=== PATIENT | female | born 1955 | race American Indian/Alaskan Native ===

== ENCOUNTER 2017-02-24 09:02 | Outpatient (CLI) | payer OTHER ==
--- NOTE | 2017-02-24 14:21 | Nuclear Medicine Report ---
NUCLEAR MEDICINE WHOLE-BODY BONE SCAN: 02/24/17 CLINICAL: History of breast cancer. COMPARISON: 06/17/16 TECHNIQUE: 25.0-millicuries technetium 99m MDP was injected intravenously and whole body scans were obtained at 3 hours. FINDINGS: Normal distribution of radionuclide in the skeleton except for benign uptake in the feet. No suspicious uptake. Normal uptake in the soft tissues. IMPRESSION: Negative study.
== END 2017-02-24 09:03 | disposition home or self-care (01) ==
LOC: NM 09:02
PROVIDERS: ATTEND Internal Medicine Hematology & Oncology
DX: M89.9 Disorder of bone, unspecified (principal); C50.911 Malignant neoplasm of unspecified site of right female breast
CPT/HCPCS: 78306; A9503

== ENCOUNTER 2017-07-10 07:51 | Outpatient (CLI) | payer OTHER ==
--- NOTE | 2017-07-10 12:56 | Nuclear Medicine Report ---
NUCLEAR MEDICINE WHOLE-BODY BONE SCAN: 07/10/17 CLINICAL: Right breast cancer. Overall joint pain. COMPARISON: 02/24/17 TECHNIQUE: 5.0millicuries technetium 99m MDP was injected intravenously and whole body scans were obtained at 3 hours. FINDINGS: A stable distribution of radionuclide in the skeleton and soft tissues with no suspicious uptake. IMPRESSION: Negative study.
== END 2017-07-10 07:52 | disposition home or self-care (01) ==
LOC: NM 07:51
PROVIDERS: ATTEND Internal Medicine Hematology & Oncology
DX: C50.911 Malignant neoplasm of unspecified site of right female breast (principal); M25.50 Pain in unspecified joint
CPT/HCPCS: 78306; A9503

== ENCOUNTER 2017-11-24 07:18 | Outpatient (CLI) | payer OTHER ==
--- NOTE | 2017-11-25 09:35 | Nuclear Medicine Report ---
NM WHOLE BODY BONE SCAN INDICATION: Malignant neoplasm of unspecified site of right breast. COMPARISON: 07/10/2017. FINDINGS: Following uneventful intravenous administration of 25 mCi of technetium 99m MDP, whole-body bone scan performed in anterior and posterior projections from the top of the head to the bottom of the feet. It reveals no definite evidence of bony metastatic disease with mild degenerative uptake at the shoulders, wrists, knees and feet. The renal shadows are normal with expected excreted radioactivity within the urinary bladder. The soft tissues appear within normal limits. CONCLUSION: No evidence of bony metastatic disease, as described. Thank you for the opportunity to participate in this patient's care.
== END 2017-11-24 07:19 | disposition home or self-care (01) ==
LOC: NM 07:18 → EDBD 08:00
PROVIDERS: ATTEND Internal Medicine Hematology & Oncology
DX: C50.911 Malignant neoplasm of unspecified site of right female breast (principal)
CPT/HCPCS: 78306; A9503

== ENCOUNTER 2021-07-30 12:20 | Outpatient (CLI) | payer MEDICARE, OTHER ==
--- NOTE | 2021-07-30 15:18 | XRay Report ---
CHEST 2 VIEWS INDICATION: COUGH/SOB/COUGHING UP BLOOD. COMPARISON: none FINDINGS: Support devices: Left Ylrgik-[id number] terminates in the superior SVC Heart: Within normal limits. Lungs/pleura: There is mild pleural-parenchymal disease at the right lung base. This appears to repre sent infiltrate and small right pleural effusion. The right upper lung and left lung are clear. No p neumothorax. Additional findings: None. IMPRESSION: Right lower lobe opacity and small right pleural effusion. Correlate for pneumonia. Signer Name: Jerome Torres Jr, MD Signed: 07/30/2021 3:13 PM Workstation Name: [id number]
== END 2021-07-30 12:21 | disposition home or self-care (01) ==
LOC: SPVIMAG 12:20
PROVIDERS: ATTEND Internal Medicine Hematology & Oncology
DX: J90 Pleural effusion, not elsewhere classified (principal); C50.911 Malignant neoplasm of unspecified site of right female breast; D50.9 Iron deficiency anemia, unspecified; C7A.8 Other malignant neuroendocrine tumors; C50.411 Malignant neoplasm of upper-outer quadrant of right female breast
CPT/HCPCS: 71046